=== PATIENT | female | born 1955 | race Caucasian/White ===

== ENCOUNTER 2021-02-14 13:08 | Inpatient (IN) ==
[2021-02-14] MEDS ORDERED: LACTULOSE 20 GM/30 ML ORAL.SOL PO PRN (14:27)
[2021-02-14] MEDS ORDERED: SENNOSIDES 1 TABLET PO PRN (14:27)
[2021-02-14] MEDS ORDERED: ONDANSETRON 4 MG ODT TABLET SL PRN (14:32)
[2021-02-14] MEDS ORDERED: DEXTROSE 31 GM ORAL.SUSP PO PRN (14:32)
[2021-02-14] MEDS ORDERED: DEXTROSE 50% 50 ML VIAL IV PRN (14:32)
--- NOTE | 2021-02-14 17:10 | Internal Med History&Physical ---
HPI History of Present Illness Patient information: Note initiated : 02/14/21 at 5:08 pm Service Date, if different from initiated Date: [] Patient: Etelvina Max a 65 y/o F admitted on 02/14/21 for COVID, pna. Chief Complaint: Dyspnea History of present illness: Ms. Max is a 65 year old F history of hypothyroidism, type 2 diabetes, hypertension, hyperlipidemia who presents in transfer from the [facility] emergency room with respiratory failure and pneumonia due to COVID-19. History is obtained and briefly speaking with the patient, though that was focused as she was on BiPAP and had difficulty speaking and was dyspneic. Further history is also obtained in reviewing records available at the [facility], as well as records sent from [facility] that were obtained from her PCPs office. Patient tells me that she has been short of breath for 3 to 4 weeks. She is felt achy she has felt rundown and has had a generally nonproductive cough. She states she went to her PCPs about 3 weeks ago and was diagnosed with Covid, though in reviewing records she was seen in Dr. Velez's office on 02/08. She had findings consistent with COVID-19 at that time and subsequent rapid Covid test was positive. Her vital signs at that time showed 99% room air saturation. During that visit she complained of a mostly dry cough, wheezing, decreased energy myalgias and headache. She was prescribed prednisone and doxycycline prior to the SARS-CoV-2 assay returning. Since then, particularly in the last 3 days she has had worsening dyspnea. She continues to feel feverish. She has decreased appetite and decreased energy. She still has body aches. Sense of taste and smell are abnormal but are still present. She presented to the emergency department at [facility] due to worsening symptoms and required oxygen to maintain saturations. Evaluation there with CT of the chest showed no pulmonary embolism but areas of groundglass opacity consistent with COVID-19 pneumonia. White count was normal at 6.1, mild hyponatremia to 132 creatinine normal at 0.9. VBG with pH 7.49, venous CO2 40. Lactate normal at 1.7, troponin less than 0.01 and pro calcitonin slightly abnormal at 0.35. proBNP was 1796. She was initially on oxygen by nasal cannula with progressive needs up to about 10 LPM. She was subsequently transitioned to BiPAP for increased work of breathing during transport. She is being transferred to [facility] due to lack of bed availability at [facility]. On arrival at [facility], she was on nonrebreather, placed on BiPAP and 100% FiO2 and is slowly had improving saturations and her FiO2 has been titrated down to 85% when I see her. No current headache, intermittent fevers. Still with cough that is mostly nonproductive. She does have some chest pain which seems to be more musculoskeletal associated with prolonged coughing. No pleuritic pain with respirations. No abdominal pain, intermittent nausea, she has had 1 or 2 bouts of emesis in the last few weeks. No dysuria. No lower extremity edema. Review of Systems Review of systems: The remainder of a full 11 point review of systems cannot be obtained due to dyspnea secondary to the patient's respiratory failure. PFSH PFSH All Active Problems (Updated 02/14/21 @ 17:26 by Katie Mirza MD) Acute respiratory failure with hypoxemia (Acute) Pneumonia due to COVID-19 virus (Acute) Strain of lumbar region (Acute) Strain of rectus abdominis muscle (Acute) Second degree uterine prolapse (Chronic) Numbness and tingling sensation of skin (Acute) Diabetes mellitus (Chronic) No pertinent past surgical history (Chronic) Hypothyroidism (acquired) (Chronic) Hypertension, essential (Chronic) Hyperlipidemia (Chronic) Diabetes mellitus, type II (Chronic) Back pain (Chronic) Medical History (Updated 02/14/21 @ 17:26 by Katie Mirza MD) Back pain Diabetes mellitus Diabetes mellitus, type II Hyperlipidemia Hypertension, essential Hypothyroidism (acquired) Second degree uterine prolapse Surgical History (Updated 09/02/20 @ 10:58 by [employer] [facility]) No pertinent past surgical history Family History Mother Diabetes mellitus Acute myocardial infarction Brother Acute myocardial infarction CVA (cerebral vascular accident) of CVA after knee surgery Father Acute myocardial infarction Social History (Updated 02/14/21 @ 17:26 by Katie Mirza MD) smoking status: Never smoker alcohol intake frequency: a few times a month MEDS/ALLERGIES Home Medications and Allergies Home Medications Medication Instructions Recorded Confirmed Type aspirin 81 mg PO QDAY 02/14/21 02/14/21 History benzonatate 100 mg PO TIDP PRN 02/14/21 02/14/21 History cannabidiol [Epidiolex] 1 mg PO DAILY 02/14/21 02/14/21 History cholecalciferol (vitamin D3) 1,000 unit PO DAILY 02/14/21 02/14/21 History [Vitamin D3] doxycycline hyclate 100 mg PO BID 02/14/21 02/14/21 History levothyroxine 125 mcg PO QDAY 02/14/21 02/14/21 History metformin 850 mg PO BID 02/14/21 02/14/21 History omega-3 fatty [id number]-imz 1 cap PO DAILY 02/14/21 02/14/21 History [MegaRed Nyzlg-Veqnk-2] phytosterol combination no.1 500 mg PO DAILY 02/14/21 02/14/21 History [Cholest Care] prednisone 10 mg PO QDAY 02/14/21 02/14/21 History valsartan-hydrochlorothiazide 1 tab PO QDAY 02/14/21 02/14/21 History zinc sulfate [Orazinc] 50 mg PO QDAY 02/14/21 02/14/21 History Allergies Allergy/AdvReac Type Severity Reaction Status Date / Time codeine AdvReac Mild N/V/D Verified 02/14/21 14:53 hydrocodone AdvReac Mild Vomiting Verified 02/14/21 14:53 EXAM Constitutional Vitals: Temp Pulse Resp BP Pulse Ox 98.4 F 94 H 22 161/85 96 02/14/21 16:01 02/14/21 16:06 02/14/21 16:06 02/14/21 16:01 02/14/21 16:06 GENERAL: Alert, oriented, in bed wearing BiPAP, uncomfortable appearing. HEENT: Atraumatic. Pupils are equal at 3 mm, limited oropharyngeal exam reveals normal mucosa and midline tongue. BiPAP mask is in place. NECK: Supple without meningismus. RESPIRATORY: Respirations assisted by BiPAP, crackles throughout all lung viramontes, more so in the right lung (though laying towards right side and that lung is dependent at time of my exam). No wheezing, no rhonchi. CARDIOVASCULAR: Regular rate and rhythm, no murmur. No peripheral edema. Carotid pulses 2+. GI: Abdomen soft, nontender, no guarding or rebound. Bowel sounds are present. MUSCULOSKELETAL: No joint erythema or swelling. SKIN: Intact, dry. Skin turgor normal. Extremities are cool, but perfused NEUROLOGIC: Cranial nerves II through XII grossly intact. Muscle mass normal. Strength appears symmetric, formal testing not performed. Sensation intact to light touch. PSYCHIATRIC: Alert, oriented x3, mood and affect congruent to situation, normal insight. DATA Data Completed and Pending Labs: Laboratory Results - last 24 hr 02/14/21 16:29 Sodium 133 Potassium 3.8 Chloride 95 L Carbon Dioxide 23 Anion Gap 15.0 BUN 26 H Creatinine 0.8 GFR Calculation 76 Glucose 312 H Uric Acid 3.9 Calcium 8.5 L Phosphorus 2.4 L Magnesium 2.1 Total Bilirubin 0.7 Direct Bilirubin 0.3 H GGT 21 AST 42 H ALT 24 Alkaline Phosphatase 43 Lactate Dehydrogenase 825 H Total Protein 5.9 Albumin 2.8 L Globulin 3.1 Albumin/Globulin Ratio 0.9 L Triglycerides 133 Impressions Impressions: CTA of the chest, bilateral groundglass opacities, no pulmonary embolism, per report from [facility]. EKG normal sinus rhythm rate of 87 with normal intervals and no acute injury pattern. Tracing is reviewed personally. A/P Narrative A/P Narrative: Pneumonia due to COVID-19 -Symptoms ongoing for a few weeks -Positive SARS-CoV-2 test on 02/08 -Progressive dyspnea, myalgias and malaise leading to ED presentation -Worsened more abruptly over the 3 days prior to presentation -Initially required nasal cannula, subsequently on BiPAP by the time of transfer Acute respiratory failure with hypoxia -Secondary to COVID-19 pneumonia -BMP elevated at 1796, but clinically no evidence of volume overload, suspect secondary to acute long process -Pulmonary embolism ruled out -Normal white count, argues against bacterial infection, though procalcitonin mildly abnormal at 0.35 Hypertension Type 2 diabetes Hyperlipidemia Hypothyroidism Plan: Inpatient admission BiPAP support High flow nasal cannula trial for meals/break from BiPAP Continue dexamethasone daily (first dose given at [facility]) Begin remdesivir Monitor intake/output, try to maintain a mild net diuresis Hold Metformin Diabetic diet, sliding scale insulin Follow procalcitonin, if rising consider adding antibacterials Follow electrolytes and renal function Follow CRP Prophylaxis: Twice daily 40 mg enoxaparin given severity of Covid illness CODE STATUS: Full code, would wish to be have intubation and ventilation if needed Time Spent With Patient Time: Critical care time: 45 minutes in evaluating and managing this patient with respiratory failure, BiPAP dependence from COVID-19 pneumonia
[2021-02-14] MEDS: INSULIN LISPRO 1 UNIT/0.01 ML UNIT SQ SCH ×2 (17:43→20:53)
[2021-02-14] MEDS ORDERED: REMDESIVIR 200 MG in 0.9 % SODIUM CHLORIDE 250 ML IV ONE (18:00)
[2021-02-14 18:17] LABS: ALT/SGPT 24 U/L (<40); AST/SGOT 42 U/L (<32); Albumin 2.8 gm/dL (3.2-5.2); Albumin/Globulin Ratio 0.9 (1.0-2.3); Alkaline Phosphatase 43 U/L (39-117); Bilirubin,Direct 0.3 mg/dL (<0.3); Bilirubin,Total 0.7 mg/dL (0.1-1.0); Blood Urea Nitrogen 26 mg/dL (8-23); Calcium 8.5 mg/dL (8.6-10.4); Carbon Dioxide 23 mmol/L (22-30); Chloride 95 mmol/L (96-108); Globulin 3.1 gm/dL (2.2-3.7); Glomerular Filtration Rate 76; Glucose 312 mg/dL (70-105); Lactate Dehydrogenase 825 U/L (135-225); Phosphorous 2.4 mg/dL (2.5-4.5); Triglycerides 133 mg/dL (<150); Uric Acid 3.9 mg/dL (2.5-8.0)
[2021-02-14] MEDS: ENOXAPARIN 40 MG/0.4 ML SYRINGE SQ SCH (20:52)
[2021-02-14] MEDS: 0.9 % SODIUM CHLORIDE 10 ML SYRINGE IV SCH (20:53)
[2021-02-14] MEDS: DOCUSATE SODIUM 100 MG CAPSULE PO SCH (20:53)
[2021-02-15] MEDS ORDERED: morphine 2 MG/ML VIAL IV ONE (05:00)
[2021-02-15] MEDS ORDERED: FUROSEMIDE 40 MG/4 ML VIAL IV ONE ×2 (05:03)
[2021-02-15] MEDS ORDERED: morphine 2 MG/ML VIAL ONE (05:03)
[2021-02-15] MEDS: 0.9 % SODIUM CHLORIDE 10 ML SYRINGE IV SCH ×3 (05:25→20:13)
[2021-02-15] MEDS: ONDANSETRON 4 MG/2 ML VIAL IV PRN ×2 (05:25→17:23)
[2021-02-15 06:57] LABS: Basophils # (Auto) 0.01 K/mcL (0.00-0.20); Basophils % (Auto) 0.2 % (0.0-2.0); Eosinophils # (Auto) 0 K/mcL (0.00-0.70); Eosinophils % (Auto) 0 % (0.0-7.0); Hematocrit 44.9 % (36.0-48.0); Hemoglobin 15.4 g/dL (12.0-15.0); Lymphocytes # (Auto) 0.65 K/mcL (1.50-4.80); Lymphocytes % (Auto) 10.2 % (15.0-49.0); Mean Cell Volume 88.4 fL (80.0-100.0); Mean Corpuscular HGB Conc 34.3 g/dL (31.0-36.0); Mean Platelet Volume 10.7 fL (7.4-10.4); Monocytes # (Auto) 0.24 K/mcL (0.10-0.90); Monocytes % (Auto) 3.8 % (1.0-12.0); Neutrophils % (Auto) 85.8 % (38.0-78.0); Platelet Count 149 K/mcL (140-440); RBC 5.08 M/mcL (4.00-5.20); Red Cell Distribution Width 12.1 % (11.5-14.5); WBC 6.4 K/mcL (4.5-11.0)
[2021-02-15 07:01] LABS: Estimated Average Glucose(eAG) 180 mg/dL; Hemoglobin A1C 7.9 % Hgb (4.0-6.0)
[2021-02-15 07:12] LABS: ALT/SGPT 24 U/L (<40); AST/SGOT 43 U/L (<32); Albumin 2.7 gm/dL (3.2-5.2); Albumin/Globulin Ratio 0.9 (1.0-2.3); Alkaline Phosphatase 46 U/L (39-117); Bilirubin,Direct 0.2 mg/dL (<0.3); Bilirubin,Total 0.6 mg/dL (0.1-1.0); Blood Urea Nitrogen 25 mg/dL (8-23); Calcium 8.8 mg/dL (8.6-10.4); Carbon Dioxide 24 mmol/L (22-30); Chloride 99 mmol/L (96-108); Glomerular Filtration Rate 76; Glucose 264 mg/dL (70-105); Lactate Dehydrogenase 863 U/L (135-225); Phosphorous 2.5 mg/dL (2.5-4.5); Triglycerides 121 mg/dL (<150); Uric Acid 4.3 mg/dL (2.5-8.0)
--- NOTE | 2021-02-15 08:26 | XRay Report ---
INDICATION: f/u Covid PNA TECHNIQUE: AP portable semiupright chest x-ray COMPARISON: None FINDINGS:Indication describes follow-up covid pneumonia. No prior examinations are available for comparison Lungs:There are bilateral patchy interstitial infiltrates. Findings are consistent with covid pneumonia. No dense parenchymal consolidation. No pulmonary parenchymal mass. Heart, vascular:No significant cardiomegaly. Pulmonary vascularity is normal. No pulmonary edema or pulmonary congestion Mediastinum, peggy:No mediastinal widening. No hilar mass Pleura:No pleural fluid. No pleural-based mass or calcification Skeletal:Negative. IMPRESSION: Bilateral pulmonary parenchymal infiltrates consistent with covid pneumonia Interpreted and Authenticated by: Ralph Arboleda 02/15/21
[2021-02-15] MEDS: FUROSEMIDE 20 MG/2 ML VIAL IV SCH (08:41)
[2021-02-15] MEDS: ENOXAPARIN 40 MG/0.4 ML SYRINGE SQ SCH ×2 (10:11→20:13)
[2021-02-15] MEDS: DOCUSATE SODIUM 100 MG CAPSULE PO SCH ×2 (10:12→20:08)
[2021-02-15] MEDS: PANTOPRAZOLE 40 MG TABLET PO SCH (10:12)
[2021-02-15] MEDS: INSULIN LISPRO 1 UNIT/0.01 ML UNIT SQ SCH ×4 (10:22→20:24)
[2021-02-15] MEDS ORDERED: LACTOPEROXI/GLUC OXID/POT THIO 1 EACH GEL..EA. TOPICAL PRN (11:27)
--- NOTE | 2021-02-15 11:28 | Internal Med Progress Note ---
SUBJECTIVE Subjective Patient information: Note initiated : 02/15/21 at 11:26 am Service Date, if different from initiated Date: [] Patient: Etelvina Max a 65 y/o F admitted on 02/14/21 for COVID, pna. Chief Complaint: f/u COVID-19 pneumonia, respiratory failure Interval history: Ms. Max is a 65 year old F history of hypothyroidism, t ype 2 diabetes, hypertension, hyperlipidemia who presents in transfer from the [facility] emergency room with respiratory failure and pneumonia due to COVID- 19. History is obtained and briefly speaking with the patient, though that was focused as she was on BiPAP and had difficulty speaking and was dyspneic. Further history is also obtained in reviewing records available at the [facility], as well as records sent from [facility] that were obtained from her PCPs office. Patient tells me that she has been short of breath for 3 to 4 weeks. She is felt achy she has felt rundown and has had a generally nonproductive cough. She states she went to her PCPs about 3 weeks ago and was diagnosed with Covid, though in reviewing records she was seen in Dr. Velez's office on 02/08. She had findings consistent with COVID-19 at that time and subsequent rapid Covid test was positive. Her vital signs at that time showed 99% room air saturation. During that visit she complained of a mostly dry cough, wheezing, decreased energy myalgias and headache. She was prescribed prednisone and doxycycline prior to the SARS-CoV-2 assay returning. Since then, particularly in the last 3 days she has had worsening dyspnea. She continues to feel feverish. She has decreased appetite and decreased energy. She still has body aches. Sense of taste and smell are abnormal but are still present. She presented to the emergency department at [facility] due to worsening symptoms and required oxygen to maintain saturations. Evaluation there with CT of the chest showed no pulmonary embolism but areas of groundglass opacity consistent with COVID-19 pneumonia. White count was normal at 6.1, mild hyponatremia to 132 creatinine normal at 0.9. VBG with pH 7.49, venous CO2 40. Lactate normal at 1.7, troponin less than 0.01 and pro calcitonin slightly abnormal at 0.35. proBNP was 1796. She was initially on oxygen by nasal cannula with progressive needs up to about 10 LPM. She was subsequently transitioned to BiPAP for increased work of breathing during transport. She is being [facility] due to lack of bed availability at [facility]. 8/3patient requiring BiPAP most of the day yesterday. Overnight at about 5:00 this morning was complaining of feeling very short of breath, was awake and alert. Up to 100% FiO2 at that time. 0.5 mg of morphine did not help with air hunger. Also received 40 mg of IV Lasix with diuresis. This morning, BiPAP pressures increased, with increasing saturations, but still on maximal FiO2. She is awake, alert and aware of her condition. Still would wish to have intubation if required. Willing to try proning. Pertinent ROS: Verify she does have dyspnea, lower chest pain along rib margin associated with coughing, cough has improved, complaining of dry mouth. Constitutional Vitals: Vital Signs Temp Pulse Resp BP Pulse Ox 99.8 F H 88 36 H 157/97 99 02/15/21 08:11 02/15/21 10:19 02/15/21 10:19 02/15/21 08:00 02/15/21 10:19 Period Temp Pulse Resp BP Sys/Hemphill Pulse Ox Last 24 Hr 98.3 F-99.9 F 75-100 19-36 129-166/70-97 86-99 Intake and Output 02/14/21 02/15/21 02/15/21 21:59 05:59 13:59 Intake Total 0 490 0 Output Total 475 550 Balance -475 -60 0 Weight 142 lb 3.2 oz GENERAL: Awake, alert, BiPAP mask RESPIRATORY: Respirations labored and with BiPAP assistance. Faint bilateral crackles. CARDIOVASCULAR: Regular rate and rhythm ABDOMEN: Soft, nontender EXTREMITIES: No edema NEURO: Alert, oriented x3, generalized weakness Intake & Output: Intake & Output 02/14/21 02/15/21 02/15/21 21:59 05:59 13:59 Intake Total 0 490 0 Output Total 475 550 Balance -475 -60 0 Weight 142 lb 3.2 oz Intake: IV 250 Veklury 200 mg In Sodium 250 Chloride 0.9% 250 ml @ 500 mls/ hr IV ONCE ONE Rx#:[id number] Oral 0 240 0 Output: Urine Catheter Amount 475 550 Other: Meal Dinner Percent of Meal Consumed 25% Feeding Ability Assist with Tray Set Up Urine Appearance Clear Urine Color Bright Yellow OBJ DATA Labs CBC & Chem 7: 02/15/21 05:15 02/15/21 05:15 Labs: Abnormal Lab Results 02/15/21 02/15/21 02/15/21 05:15 05:15 05:15 Hgb 15.4 H MPV 10.7 H Neut % (Auto) 85.8 H Lymph % (Auto) 10.2 L Lymph # (Auto) 0.65 L Chloride BUN 25 H Glucose 264 H Hemoglobin A1c 7.9 H Calcium Phosphorus Direct Bilirubin AST 43 H Lactate Dehydrogenase 863 H C-Reactive Protein 9.20 H Total Protein 5.7 L Albumin 2.7 L Albumin/Globulin Ratio 0.9 L Procalcitonin 0.26 H 02/14/21 16:29 Hgb MPV Neut % (Auto) Lymph % (Auto) Lymph # (Auto) Chloride 95 L BUN 26 H Glucose 312 H Hemoglobin A1c Calcium 8.5 L Phosphorus 2.4 L Direct Bilirubin 0.3 H AST 42 H Lactate Dehydrogenase 825 H C-Reactive Protein Total Protein Albumin 2.8 L Albumin/Globulin Ratio 0.9 L Procalcitonin Meds: Medications Acetaminophen (Acetaminophen 325 Mg Tablet) 650 mg PO Q6HP PRN; Protocol PRN Reason: Per Pain Protocol/Fever > 101 Dextrose (Dextrose 50% 50 Ml Vial) 0 ml IV UD PRN PRN Reason: Hypoglycemia Diagnostic Test (Pha) (Accu-Chek 1 Each Strip) 1 each FS ACHS COUNTS INCLUDE 234 BEDS AT THE [facility] Last Admin: 02/15/21 10:20 Dose: 1 each Documented by: Docusate Sodium (Docusate Sodium 100 Mg Capsule) 100 mg PO BID COUNTS INCLUDE 234 BEDS AT THE [facility] Last Admin: 02/15/21 10:12 Dose: 100 mg Documented by: Enoxaparin Sodium (Enoxaparin 40 Mg/0.4 Ml Syringe) 40 mg SQ BID COUNTS INCLUDE 234 BEDS AT THE [facility] Last Admin: 02/15/21 10:11 Dose: 40 mg Documented by: Furosemide (Furosemide 20 Mg/2 Ml Vial) 20 mg IV DAILY COUNTS INCLUDE 234 BEDS AT THE [facility] Last Admin: 02/15/21 08:41 Dose: Not Given Documented by: Glucose (Dextrose 31 Gm Oral.Susp) 15 gm PO PRN PRN PRN Reason: Hypoglycemia REMDESIVIR 100 mg/ Sodium (Chloride) 250 mls @ 500 mls/hr IV Q24H COUNTS INCLUDE 234 BEDS AT THE [facility] Stop: 02/18/21 12:29 Insulin Human Lispro (Insulin Lispro 1 Unit/0.01 Ml Unit) 0 unit SQ ACHS COUNTS INCLUDE 234 BEDS AT THE [facility]; Protocol Last Admin: 02/15/21 10:22 Dose: 12 unit Documented by: Lactulose (Lactulose 20 Gm/30 Ml Oral.Jeannie) 10 gm PO DAILYP PRN PRN Reason: Constipation Ondansetron HCl (Ondansetron 4 Mg Odt Tablet) 4 mg SL Q4HP PRN; Protocol PRN Reason: Nausea And Vomiting Ondansetron HCl (Ondansetron 4 Mg/2 Ml Vial) 4 mg IV Q4HP PRN; Protocol PRN Reason: Nausea And Vomiting Last Admin: 02/15/21 05:25 Dose: 4 mg Documented by: Pantoprazole Sodium (Pantoprazole 40 Mg Tablet) 40 mg PO QAMAC COUNTS INCLUDE 234 BEDS AT THE [facility] Last Admin: 02/15/21 10:12 Dose: 40 mg Documented by: Senna (Sennosides 1 Tablet) 2 tab PO HSP PRN PRN Reason: Constipation Sodium Chloride (0.9 % Sodium Chloride 10 Ml Syringe) 10 ml IV Q8 COUNTS INCLUDE 234 BEDS AT THE [facility] Last Admin: 02/15/21 05:25 Dose: 10 ml Documented by: A/P Narrative A/P Narrative: Pneumonia due to COVID-19 -Symptoms ongoing for a few weeks -Positive SARS-CoV-2 test on 02/08 -Progressive dyspnea, myalgias and malaise leading to ED presentation -Worsened more abruptly over the 3 days prior to presentation -Initially required nasal cannula, subsequently on BiPAP by the time of transfer -Up to 100% FiO2 on 02/15, though starting to improve with increased pressures and will try proning Acute respiratory failure with hypoxia -Secondary to COVID-19 pneumonia -BMP elevated at 1796, but clinically no evidence of volume overload, suspect secondary to acute long process -Pulmonary embolism ruled out -Normal white count, argues against bacterial infection, though procalcitonin mildly abnormal at 0.35 -Procalcitonin decreased to 0.26, argues against bacterial infection this morning Type 2 diabetes -On Metformin at home Hypertension Hyperlipidemia Hypothyroidism Plan: BiPAP support Trial of proning today High flow nasal cannula trial for meals/break from BiPAP if stable Continue dexamethasone and remdesivir, day #2 Monitor intake/output, try to maintain a mild net diuresis Biotene for dry mouth Hold Metformin Diabetic diet, sliding scale insulin Follow procalcitonin, if rising consider adding antibacterials Follow electrolytes and renal function Follow CRP Prophylaxis: Twice daily 40 mg enoxaparin given severity of Covid illness CODE STATUS: Full code, would wish to be have intubation and ventilation if needed Time Spent With Patient Time: Critical care: 30 minutes critical care time with the patient on unit and managing respiratory failure and noninvasive ventilation QUALITY VTE Deep Vein Thrombosis/Pulmonary Embolism Present on Admission: No
[2021-02-15] MEDS: REMDESIVIR 100 MG in 0.9 % SODIUM CHLORIDE 250 ML IV SCH (12:00)
--- NOTE | 2021-02-15 14:13 | Internal Med Progress Note ---
SUBJECTIVE Subjective Patient information: Note initiated : 02/15/21 at 2:09 pm Service Date, if different from initiated Date: [] Patient: Etelvina Max a 65 y/o F admitted on 02/14/21 for COVID, pna. Chief Complaint: [] Interval history: Ms. Max is a 65 year old F history of hypothyroidism, type 2 diabetes, hypertension, hyperlipidemia who presents in transfer from the [facility] emergency room with respiratory failure and pneumonia due to COVID- 19. History is obtained and briefly speaking with the patient, though that was focused as she was on BiPAP and had difficulty speaking and was dyspneic. Further history is also obtained in reviewing records available at the [facility], as well as records sent from [facility] that were obtained from her PCPs office. Patient tells me that she has been short of breath for 3 to 4 weeks. She is felt achy she has felt rundown and has had a generally nonproductive cough. She states she went to her PCPs about 3 weeks ago and was diagnosed with Covid, though in reviewing records she was seen in Dr. Velez's office on 02/08. She had findings consistent with COVID-19 at that time and subsequent rapid Covid test was positive. Her vital signs at that time showed 99% room air saturation. During that visit she complained of a mostly dry cough, wheezing, decreased energy myalgias and headache. She was prescribed prednisone and doxycycline prior to the SARS-CoV-2 assay returning. Since then, particularly in the last 3 days she has had worsening dyspnea. She continues to feel feverish. She has decreased appetite and decreased energy. She still has body aches. Sense of taste and smell are abnormal but are still present. She presented to the emergency department at [facility] due to worsening symptoms and required oxygen to maintain saturations. Evaluation there with CT of the chest showed no pulmonary embolism but areas of groundglass opacity consistent with COVID-19 pneumonia. White count was normal at 6.1, mild hyponatremia to 132 creatinine normal at 0.9. VBG with pH 7.49, venous CO2 40. Lactate normal at 1.7, troponin less than 0.01 and pro calcitonin slightly abnormal at 0.35. proBNP was 1796. She was initially on oxygen by nasal cannu la with progressive needs up to about 10 LPM. She was subsequently transitioned to BiPAP for increased work of breathing during transport. She is being [facility] due to lack of bed availability at [facility]. atient requiring BiPAP most of the day yesterday. Overnight at about 5:00 this morning was complaining of feeling very short of breath, was awake and alert. Up to 100% FiO2 at that time. 0.5 mg of morphine did not help with air hunger. Also received 40 mg of IV Lasix with diuresis. This morning, BiPAP pressures increased, with increasing saturations, but still on maximal FiO2. She is awake, alert and aware of her condition. Still would wish to have intuba tion if required. Willing to try proning. 02/16 Constitutional Vitals: Vital Signs Temp Pulse Resp BP Pulse Ox 99.4 F H 88 22 130/72 99 02/15/21 12:01 02/15/21 12:19 02/15/21 12:19 02/15/21 12:01 02/15/21 12:19 Period Temp Pulse Resp BP Sys/Hemphill Pulse Ox Last 24 Hr 98.3 F-100.0 F 75-100 19-36 129-166/70-97 86-99 Intake and Output 02/15/21 02/15/21 02/15/21 05:59 13:59 21:59 Intake Total 490 250 Output Total 550 Balance -60 250 Weight 64.501 kg Patient Weight 02/16/21 05:59 Weight 64.501 kg Intake & Output: Intake & Output 02/15/21 02/15/21 02/15/21 05:59 13:59 21:59 Intake Total 490 250 Output Total 550 Balance -60 250 Weight 64.501 kg Intake: IV 250 250 Veklury 100 mg In Sodium 250 250 Chloride 0.9% 250 ml @ 500 mls/ hr IV Q24H [facility] Rx#:[id number] Oral 240 0 Output: Urine Catheter Amount 550 Other: Meal Dinner Percent of Meal Consumed 25% Feeding Ability Assist with Tray Set Up Exam: General: Alert, Awake, No acute Distress Eyes/N/T: EOMI, Head/Neck: neck supple, CV: RRR, No murmurs, Pulm: faint b/l rales, labored, on bipap, no wheezing Abd: soft, nontender, +BS x4 Ext: no clubbing/cyanosis/edema Neuro: Alert, no focal deficits, moves all extremities, Skin: warm/dry OBJ DATA Labs CBC & Chem 7: 02/15/21 05:15 02/15/21 05:15 Labs: Abnormal Lab Results 02/15/21 02/15/21 02/15/21 05:15 05:15 05:15 Hgb 15.4 H MPV 10.7 H Neut % (Auto) 85.8 H Lymph % (Auto) 10.2 L Lymph # (Auto) 0.65 L Chloride BUN 25 H Glucose 264 H Hemoglobin A1c 7.9 H Calcium Phosphorus Direct Bilirubin AST 43 H Lactate Dehydrogenase 863 H C-Reactive Protein 9.20 H Total Protein 5.7 L Albumin 2.7 L Albumin/Globulin Ratio 0.9 L Procalcitonin 0.26 H 02/14/21 16:29 Hgb MPV Neut % (Auto) Lymph % (Auto) Lymph # (Auto) Chloride 95 L BUN 26 H Glucose 312 H Hemoglobin A1c Calcium 8.5 L Phosphorus 2.4 L Direct Bilirubin 0.3 H AST 42 H Lactate Dehydrogenase 825 H C-Reactive Protein Total Protein Albumin 2.8 L Albumin/Globulin Ratio 0.9 L Procalcitonin Meds: Medications Acetaminophen (Acetaminophen 325 Mg Tablet) 650 mg PO Q6HP PRN; Protocol PRN Reason: Per Pain Protocol/Fever > 101 Dextrose (Dextrose 50% 50 Ml Vial) 0 ml IV UD PRN PRN Reason: Hypoglycemia Diagnostic Test (Pha) (Accu-Chek 1 Each Strip) 1 each FS ACHS [facility] Last Admin: 02/15/21 12:53 Dose: 1 each Documented by: Docusate Sodium (Docusate Sodium 100 Mg Capsule) 100 mg PO BID [facility] Last Admin: 02/15/21 10:12 Dose: 100 mg Documented by: Enoxaparin Sodium (Enoxaparin 40 Mg/0.4 Ml Syringe) 40 mg SQ BID [facility] Last Admin: 02/15/21 10:11 Dose: 40 mg Documented by: Furosemide (Furosemide 20 Mg/2 Ml Vial) 20 mg IV DAILY [facility] Last Admin: 02/15/21 08:41 Dose: Not Given Documented by: Glucose (Dextrose 31 Gm Oral.Susp) 15 gm PO PRN PRN PRN Reason: Hypoglycemia Glucose Oxid/Lactoperoxid/Muramidas (Lactoperoxi/Gluc Oxid/Pot Thio 1 Each Gel..Ea.) 1 each TOPICAL PRN PRN PRN Reason: Dry Mouth REMDESIVIR 100 mg/ Sodium (Chloride) 250 mls @ 500 mls/hr IV Q24H [facility] Stop: 02/18/21 12:29 Last Infusion: 02/15/21 12:40 Dose: Infused Documented by: Insulin Human Lispro (Insulin Lispro 1 Unit/0.01 Ml Unit) 0 unit SQ ACHS [facility]; Protocol Last Admin: 02/15/21 12:54 Dose: 10 unit Documented by: Lactulose (Lactulose 20 Gm/30 Ml Oral.Jeannie) 10 gm PO DAILYP PRN PRN Reason: Constipation Ondansetron HCl (Ondansetron 4 Mg Odt Tablet) 4 mg SL Q4HP PRN; Protocol PRN Reason: Nausea And Vomiting Ondansetron HCl (Ondansetron 4 Mg/2 Ml Vial) 4 mg IV Q4HP PRN; Protocol PRN Reason: Nausea And Vomiting Last Admin: 02/15/21 05:25 Dose: 4 mg Documented by: Pantoprazole Sodium (Pantoprazole 40 Mg Tablet) 40 mg PO QAMAC [facility] Last Admin: 02/15/21 10:12 Dose: 40 mg Documented by: Senna (Sennosides 1 Tablet) 2 tab PO HSP PRN PRN Reason: Constipation Sodium Chloride (0.9 % Sodium Chloride 10 Ml Syringe) 10 ml IV Q8 [facility] Last Admin: 02/15/21 12:37 Dose: 10 ml Documented by: A/P Narrative A/P Narrative: A: *Pneumonia due to COVID-19 w/possible Bacterial coinfection: -Positive SARS-CoV-2 test on 02/08 -PCT mildly elevated *Acute respiratory failure w/hypoxia: 2/2 above -BMP elevated at 1796, but clinically no evidence of volume overload, suspect 2/2 acute long process -Pulmonary embolism ruled out -on Bipap @100% fio2 *Type 2 diabetes: On Metformin at home -A1c 7.9 *Hypertension/HLD: *Hypothyroidism: Plan: -Tocilizumab BiPAP support, wean as able Trial of proning today High flow nasal cannula trial for meals/break from BiPAP if stable Continue dexamethasone and remdesivir, day #2 Monitor intake/output, try to maintain a mild net diuresis Biotene for dry mouth Diabetic diet, sliding scale insulin, hold metformin Follow electrolytes and renal function Follow CRP Prophylaxis: Twice daily 40 mg enoxaparin given severity of Covid illness / ppi CODE STATUS: Full code, would wish to be have intubation and ventilation if needed Time Spent With Patient Time: Total time spent is greater than 50% in coordination of care (as documented) at patient's floor/unit and/or counseling patient: QUALITY VTE Deep Vein Thrombosis/Pulmonary Embolism Present on Admission: No
[2021-02-15] MEDS: AZITHROMYCIN 500 MG in DEXTROSE 5% IN WATER 250 ML IV SCH (14:20)
[2021-02-15] MEDS ORDERED: INSULIN LISPRO 1 UNIT/0.01 ML UNIT SQ SCH (14:30)
[2021-02-15] MEDS: cefTRIAXone 2 GM in DEXTROSE 5% IN WATER 50 ML IV SCH (14:56)
[2021-02-15] MEDS: INSULIN GLARGINE, HUMAN 1 UNIT/0.01 ML SQ SCH (15:08)
[2021-02-15] MEDS: DEXAMETHASONE 10 MG/ML VIAL IV SCH (15:08)
[2021-02-15] MEDS: ACETAMINOPHEN 325 MG TABLET PO PRN (17:10)
[2021-02-16] MEDS: INSULIN LISPRO 1 UNIT/0.01 ML UNIT SQ SCH ×6 (02:08→20:38)
[2021-02-16] MEDS: 0.9 % SODIUM CHLORIDE 10 ML SYRINGE IV SCH ×3 (05:51→20:05)
[2021-02-16 07:26] LABS: Hematocrit 46.1 % (36.0-48.0); Hemoglobin 16.3 g/dL (12.0-15.0); Mean Cell Volume 88.8 fL (80.0-100.0); Mean Corpuscular HGB Conc 35.4 g/dL (31.0-36.0); Platelet Count 181 K/mcL (140-440); RBC 5.19 M/mcL (4.00-5.20); Red Cell Distribution Width 12.3 % (11.5-14.5); WBC 6.9 K/mcL (4.5-11.0)
[2021-02-16 07:51] LABS: ALT/SGPT 21 U/L (<40); AST/SGOT 37 U/L (<32); Albumin 2.9 gm/dL (3.2-5.2); Albumin/Globulin Ratio 0.9 (1.0-2.3); Alkaline Phosphatase 48 U/L (39-117); Bilirubin,Direct 0.3 mg/dL (<0.3); Bilirubin,Total 0.6 mg/dL (0.1-1.0); Blood Urea Nitrogen 36 mg/dL (8-23); Carbon Dioxide 29 mmol/L (22-30); Chloride 97 mmol/L (96-108); Globulin 3.2 gm/dL (2.2-3.7); Glomerular Filtration Rate 52; Glucose 252 mg/dL (70-105); Lactate Dehydrogenase 804 U/L (135-225); Phosphorous 3.2 mg/dL (2.5-4.5); Triglycerides 73 mg/dL (<150); Uric Acid 5.5 mg/dL (2.5-8.0)
--- NOTE | 2021-02-16 07:52 | Internal Med Progress Note ---
SUBJECTIVE Subjective Patient information: Note initiated : 02/16/21 at 7:48 am Service Date, if different from initiated Date: [] Patient: Etelvina Max a 65 y/o F admitted on 02/14/21 for COVID, pna. Chief Complaint: [] Interval history: Ms. Max is a 65 year old F history of hypothyroidism, type 2 diabetes, hypertension, hyperlipidemia who presents in transfer from the [facility] emergency room with respiratory failure and pneumonia due to COVID- 19. History is obtained and briefly speaking with the patient, though that was focused as she was on BiPAP and had difficulty speaking and was dyspneic. Further history is also obtained in reviewing records available at the [facility], as well as records sent from [facility] that were obtained from her PCPs office. Patient tells me that she has been short of breath for 3 to 4 weeks. She is felt achy she has felt rundown and has had a generally nonproductive cough. She states she went to her PCPs about 3 weeks ago and was diagnosed with Covid, though in reviewing records she was seen in Dr. Velez's office on 02/08. She had findings consistent with COVID-19 at that time and subsequent rapid Covid test was positive. Her vital signs at that time showed 99% room air saturation. During that visit she complained of a mostly dry cough, wheezing, decreased energy myalgias and headache. She was prescribed prednisone and doxycycline prior to the SARS-CoV-2 assay returning. Since then, particularly in the last 3 days she has had worsening dyspnea. She continues to feel feverish. She has decreased appetite and decreased energy. She still has body aches. Sense of taste and smell are abnormal but are still present. She presented to the emergency department at [facility] due to worsening symptoms and required oxygen to maintain saturations. Evaluation there with CT of the chest showed no pulmonary embolism but areas of groundglass opacity consistent with COVID-19 pneumonia. White count was normal at 6.1, mild hyponatremia to 132 creatinine normal at 0.9. VBG with pH 7.49, venous CO2 40. Lactate normal at 1.7, troponin less than 0.01 and pro calcitonin slightly abnormal at 0.35. proBNP was 1796. She was initially on oxygen by nasal cannu la with progressive needs up to about 10 LPM. She was subsequently transitioned to BiPAP for increased work of breathing during transport. She is being transferred to [facility] due to lack of bed availability at [facility]. atient requiring BiPAP most of the day yesterday. Overnight at about 5:00 this morning was complaining of feeling very short of breath, was awake and alert. Up to 100% FiO2 at that time. 0.5 mg of morphine did not help with air hunger. Also received 40 mg of IV Lasix with diuresis. This morning, BiPAP pressures increased, with increasing saturations, but still on maximal FiO2. She is awake, alert and aware of her condition. Still would wish to have intuba tion if required. Willing to try proning. 02/16 FiO2 needs decreased today. She was on 100% FiO2 yesterday. She is on 65% on BiPAP. She was on 70% FiO2 on the Vapotherm but she did not tolerate it because of the heated oxygen. Trying to get Actemra today. She states poor sleep. Review of Systems: denies headache/fever/chills/nausea/vomiting/chest or abdominal pain/diarrhea. Otherwise see above. Constitutional Vitals: Vital Signs Temp Pulse Resp BP Pulse Ox 98.8 F 94 H 23 H 140/105 90 02/16/21 05:02 02/16/21 07:21 02/16/21 07:21 02/16/21 05:01 02/16/21 07:21 Period Temp Pulse Resp BP Sys/Hemphill Pulse Ox Last 24 Hr 98.4 F-100.4 F 70-100 18-36 86-157/55-105 90-99 Intake and Output 02/15/21 02/16/21 02/16/21 21:59 05:59 13:59 Intake Total 300 0 Output Total 1450 530 Balance -1150 -530 0 Weight 66.315 kg Intake & Output: Intake & Output 02/15/21 02/16/21 02/16/21 21:59 05:59 13:59 Intake Total 300 0 Output Total 1450 530 Balance -1150 -530 0 Weight 66.315 kg Intake: IV 300 Zithromax 500 mg In Dextrose 5% 250 in Water 250 ml @ 250 mls/hr IV DAILY [facility] Rx#:[id number] Rocephin 2 gm In Dextrose 5% in 50 Water 50 ml @ 100 mls/hr IV DAILY [facility] Rx#:[id number] Oral 0 0 Output: Urine Catheter Amount 1450 530 Other: Urine Appearance Clear Urine Color Pale Exam: General: Alert, Awake, No acute Distress Eyes/N/T: EOMI, Head/Neck: neck supple, CV: RRR, No murmurs, Pulm: faint b/l rales, diminished b/l, no wheezing Abd: soft, nontender, +BS x4 Ext: no clubbing/cyanosis/edema Neuro: Alert, no focal deficits, moves all extremities, Skin: warm/dry OBJ DATA Labs CBC & Chem 7: 02/16/21 05:49 02/16/21 05:49 Labs: Abnormal Lab Results 02/16/21 02/15/21 02/15/21 05:49 05:15 05:15 Hgb 16.3 H MPV Neut % (Auto) Lymph % (Auto) Lymph # (Auto) Chloride BUN 25 H Glucose 264 H Hemoglobin A1c 7.9 H Calcium Phosphorus Direct Bilirubin AST 43 H Lactate Dehydrogenase 863 H C-Reactive Protein 9.20 H Total Protein 5.7 L Albumin 2.7 L Albumin/Globulin Ratio 0.9 L Procalcitonin 0.26 H 02/15/21 02/14/21 05:15 16:29 Hgb 15.4 H MPV 10.7 H Neut % (Auto) 85.8 H Lymph % (Auto) 10.2 L Lymph # (Auto) 0.65 L Chloride 95 L BUN 26 H Glucose 312 H Hemoglobin A1c Calcium 8.5 L Phosphorus 2.4 L Direct Bilirubin 0.3 H AST 42 H Lactate Dehydrogenase 825 H C-Reactive Protein Total Protein Albumin 2.8 L Albumin/Globulin Ratio 0.9 L Procalcitonin Meds: Medications Acetaminophen (Acetaminophen 325 Mg Tablet) 650 mg PO Q6HP PRN; Protocol PRN Reason: Per Pain Protocol/Fever > 101 Last Admin: 02/15/21 17:10 Dose: 650 mg Documented by: Dexamethasone (Dexamethasone 10 Mg/Ml Vial) 6 mg IV DAILY [facility] Last Admin: 02/15/21 15:08 Dose: 6 mg Documented by: Dextrose (Dextrose 50% 50 Ml Vial) 0 ml IV UD PRN PRN Reason: Hypoglycemia Diagnostic Test (Pha) (Accu-Chek 1 Each Strip) 1 each FS Q4 [facility] Last Admin: 02/16/21 03:31 Dose: 1 each Documented by: Docusate Sodium (Docusate Sodium 100 Mg Capsule) 100 mg PO BID [facility] Last Admin: 02/15/21 20:08 Dose: Not Given Documented by: Enoxaparin Sodium (Enoxaparin 40 Mg/0.4 Ml Syringe) 40 mg SQ BID [facility] Last Admin: 02/15/21 20:13 Dose: 40 mg Documented by: Furosemide (Furosemide 20 Mg/2 Ml Vial) 20 mg IV DAILY [facility] Last Admin: 02/15/21 08:41 Dose: Not Given Documented by: Glucose (Dextrose 31 Gm Oral.Susp) 15 gm PO PRN PRN PRN Reason: Hypoglycemia Glucose Oxid/Lactoperoxid/Muramidas (Lactoperoxi/Gluc Oxid/Pot Thio 1 Each Gel..Ea.) 1 each TOPICAL PRN PRN PRN Reason: Dry Mouth REMDESIVIR 100 mg/ Sodium (Chloride) 250 mls @ 500 mls/hr IV Q24H [facility] Stop: 02/18/21 12:29 Last Infusion: 02/15/21 12:40 Dose: Infused Documented by: Ceftriaxone Sodium 2 gm/ (Dextrose) 50 mls @ 100 mls/hr IV DAILY [facility]; Protocol Last Infusion: 02/15/21 15:30 Dose: Infused Documented by: Azithromycin 500 mg/ Dextrose 250 mls @ 250 mls/hr IV DAILY [facility]; Protocol Stop: 02/17/21 09:59 Last Infusion: 02/15/21 15:30 Dose: Infused Documented by: Insulin Glargine (Insulin Glargine, Human 1 Unit/0.01 Ml) 10 unit SQ DAILY [facility] Last Admin: 02/15/21 15:08 Dose: 10 unit Documented by: Insulin Human Lispro (Insulin Lispro 1 Unit/0.01 Ml Unit) 0 unit SQ Q4H [facility]; Protocol Last Admin: 02/16/21 03:30 Dose: 4 unit Documented by: Lactulose (Lactulose 20 Gm/30 Ml Oral.Jeannie) 10 gm PO DAILYP PRN PRN Reason: Constipation Ondansetron HCl (Ondansetron 4 Mg Odt Tablet) 4 mg SL Q4HP PRN; Protocol PRN Reason: Nausea And Vomiting Ondansetron HCl (Ondansetron 4 Mg/2 Ml Vial) 4 mg IV Q4HP PRN; Protocol PRN Reason: Nausea And Vomiting Last Admin: 02/15/21 17:23 Dose: 4 mg Documented by: Pantoprazole Sodium (Pantoprazole 40 Mg Tablet) 40 mg PO QAMAC [facility] Last Admin: 02/15/21 10:12 Dose: 40 mg Documented by: Senna (Sennosides 1 Tablet) 2 tab PO HSP PRN PRN Reason: Constipation Sodium Chloride (0.9 % Sodium Chloride 10 Ml Syringe) 10 ml IV Q8 [facility] Last Admin: 02/16/21 05:51 Dose: 10 ml Documented by: A/P Narrative A/P Narrative: A: *Pneumonia due to COVID-19 w/possible Bacterial coinfection: -Positive SARS-CoV-2 test on 02/08 -PCT mildly elevated *Acute respiratory failure w/hypoxia: 2/2 above -BMP elevated at 1796, but clinically no evidence of volume overload, suspect 2/2 acute long process -no PE per CTA chest @[facility]. Normal cardiac SPECT 2018 with good EF -on Bipap, fio2 down to 65% *Type 2 diabetes: On Metformin at home -A1c 7.9 *Hypertension/HLD: *Hypothyroidism: Plan: -Tocilizumab today BiPAP support, wean as able proning daily High flow nasal cannula trial for meals/break from BiPAP if stable Continue dexamethasone/remdesivir Monitor intake/output, try to maintain a mild net diuresis, hold lasix for now Biotene for dry mouth Diabetic diet, sliding scale insulin, hold metformin Follow electrolytes and renal function Follow CRP Prophylaxis: Twice daily 40 mg enoxaparin given severity of Covid illness / ppi CODE STATUS: Full code, would wish to be have intubation and ventilation if needed Time Spent With Patient Time: Total time spent is greater than 50% in coordination of care (as documented) at patient's floor/unit and/or counseling patient: QUALITY VTE Deep Vein Thrombosis/Pulmonary Embolism Present on Admission: No
[2021-02-16] MEDS: PANTOPRAZOLE 40 MG TABLET PO SCH (08:17)
[2021-02-16 08:22] LABS: INR 1.3 (0.9-1.1); Prothrombin Time 16.9 sec (11.9-14.5)
[2021-02-16] MEDS: AZITHROMYCIN 500 MG in DEXTROSE 5% IN WATER 250 ML IV SCH (09:00)
[2021-02-16] MEDS: ENOXAPARIN 40 MG/0.4 ML SYRINGE SQ SCH ×2 (09:00→20:05)
[2021-02-16] MEDS: cefTRIAXone 2 GM in DEXTROSE 5% IN WATER 50 ML IV SCH (09:00)
[2021-02-16] MEDS: FUROSEMIDE 20 MG/2 ML VIAL IV SCH (09:01)
[2021-02-16] MEDS: INSULIN GLARGINE, HUMAN 1 UNIT/0.01 ML SQ SCH (09:01)
[2021-02-16] MEDS: DEXAMETHASONE 10 MG/ML VIAL IV SCH (09:01)
[2021-02-16 10:22] LABS: Band Neutrophils % 4 % (0-10); Lymphocytes % 8 % (15-49); Monocytes % (Manual) 8 % (1-12); Platelet Estimate NORMAL (Normal); RBC Morphology NORMAL (Normal); Segmented Neutrophils % 80 % (38-78)
[2021-02-16] MEDS: DOCUSATE SODIUM 50 MG/5 ML ORAL.SOL PT SCH ×2 (10:56→20:05)
[2021-02-16] MEDS: REMDESIVIR 100 MG in 0.9 % SODIUM CHLORIDE 250 ML IV SCH (11:59)
[2021-02-16] MEDS ORDERED: INSULIN GLARGINE, HUMAN 1 UNIT/0.01 ML SQ ONE ×2 (18:54→20:23)
[2021-02-16] MEDS ORDERED: INSULIN LISPRO 1 UNIT/0.01 ML UNIT SQ ONE (20:25)
[2021-02-17] MEDS: INSULIN LISPRO 1 UNIT/0.01 ML UNIT SQ SCH ×4 (04:19→14:33)
[2021-02-17] MEDS: ACETAMINOPHEN 325 MG TABLET PO PRN (04:22)
[2021-02-17] MEDS: 0.9 % SODIUM CHLORIDE 10 ML SYRINGE IV SCH (06:00)
[2021-02-17 06:49] LABS: INR 1.3 (0.9-1.1)
[2021-02-17 06:55] LABS: ALT/SGPT 18 U/L (<40); AST/SGOT 27 U/L (<32); Albumin 2.6 gm/dL (3.2-5.2); Albumin/Globulin Ratio 0.9 (1.0-2.3); Alkaline Phosphatase 45 U/L (39-117); Bilirubin,Direct 0.2 mg/dL (<0.3); Bilirubin,Total 0.5 mg/dL (0.1-1.0); Blood Urea Nitrogen 37 mg/dL (8-23); Calcium 8.5 mg/dL (8.6-10.4); Carbon Dioxide 30 mmol/L (22-30); Chloride 98 mmol/L (96-108); Globulin 2.9 gm/dL (2.2-3.7); Glomerular Filtration Rate 52; Glucose 204 mg/dL (70-105); Lactate Dehydrogenase 680 U/L (135-225); Phosphorous 2.3 mg/dL (2.5-4.5); Triglycerides 80 mg/dL (<150); Uric Acid 6.1 mg/dL (2.5-8.0)
[2021-02-17] MEDS ORDERED: POTASSIUM CHLORIDE 40 MEQ in DEXTROSE 5% IN WATER 500 ML IV PRN (07:20)
[2021-02-17] MEDS ORDERED: PANTOPRAZOLE 40 MG VIAL IV SCH (07:30)
[2021-02-17] MEDS ORDERED: IOPAMIDOL 100 ML BOTTLE IV ONE (08:14)
--- NOTE | 2021-02-17 08:25 | Internal Med Progress Note ---
SUBJECTIVE Subjective Patient information: Note initiated : 02/17/21 at 8:23 am Service Date, if different from initiated Date: [] Patient: Etelvina Max a 65 y/o F admitted on 02/14/21 for COVID, pna. Chief Complaint: [] Interval history: Ms. Max is a 65 year old F history of hypothyroidism, type 2 diabetes, hypertension, hyperlipidemia who presents in transfer from the [facility] emergency room with respiratory failure and pneumonia due to COVID- 19. History is obtained and briefly speaking with the patient, though that was focused as she was on BiPAP and had difficulty speaking and was dyspneic. Further history is also obtained in reviewing records available at the [facility], as well as records sent from [facility] that were obtained from her PCPs office. Patient tells me that she has been short of breath for 3 to 4 weeks. She is felt achy she has felt rundown and has had a generally nonproductive cough. She states she went to her PCPs about 3 weeks ago and was diagnosed with Covid, though in reviewing records she was seen in Dr. Velez's office on 02/08. She had findings consistent with COVID-19 at that time and subsequent rapid Covid test was positive. Her vital signs at that time showed 99% room air saturation. During that visit she complained of a mostly dry cough, wheezing, decreased energy myalgias and headache. She was prescribed prednisone and doxycycline prior to the SARS-CoV-2 assay returning. Since then, particularly in the last 3 days she has had worsening dyspnea. She continues to feel feverish. She has decreased appetite and decreased energy. She still has body aches. Sense of taste and smell are abnormal but are still present. She presented to the emergency department at [facility] due to worsening symptoms and required oxygen to maintain saturations. Evaluation there with CT of the chest showed no pulmonary embolism but areas of groundglass opacity consistent with COVID-19 pneumonia. White count was normal at 6.1, mild hyponatremia to 132 creatinine normal at 0.9. VBG with pH 7.49, venous CO2 40. Lactate normal at 1.7, troponin less than 0.01 and pro calcitonin slightly abnormal at 0.35. proBNP was 1796. She was initially on oxygen by nasal cannu la with progressive needs up to about 10 LPM. She was subsequently transitioned to BiPAP for increased work of breathing during transport. She is being transferred to [facility] due to lack of bed availability at [facility]. atient requiring BiPAP most of the day yesterday. Overnight at about 5:00 this morning was complaining of feeling very short of breath, was awake and alert. Up to 100% FiO2 at that time. 0.5 mg of morphine did not help with air hunger. Also received 40 mg of IV Lasix with diuresis. This morning, BiPAP pressures increased, with increasing saturations, but still on maximal FiO2. She is awake, alert and aware of her condition. Still would wish to have intuba tion if required. Willing to try proning. 02/16 FiO2 needs decreased today. She was on 100% FiO2 yesterday. She is on 65% on BiPAP. She was on 70% FiO2 on the Vapotherm but she did not tolerate it because of the heated oxygen. Trying to get Actemra today. She states poor sleep. 02/17 Patient with no improvement in respiratory needed. Still on BiPAP with FiO2 90. Patient states breathing is about the same but she feels more tired. Developed significant subcutaneous emphysema pneumo mediastinum. Discussed with patient the need for intubation and transfer to higher care facility. Review of Systems: denies headache/fever/chills/nausea/vomiting/chest or abdominal pain/diarrhea. Otherwise see above. Constitutional Vitals: Vital Signs Temp Pulse Resp BP Pulse Ox 98.6 F 84 31 H 152/65 93 02/17/21 04:22 02/17/21 05:00 02/17/21 05:00 02/17/21 04:01 02/17/21 05:00 Period Temp Pulse Resp BP Sys/Hemphill Pulse Ox Last 24 Hr 98.4 F-99.7 F 68-100 16-31 84-153/61-85 83-97 Intake and Output 02/16/21 02/17/21 02/17/21 21:59 05:59 13:59 Intake Total 200 420 Output Total 1125 250 Balance -925 170 Weight 65.998 kg Intake & Output: Intake & Output 02/16/21 02/17/21 02/17/21 21:59 05:59 13:59 Intake Total 200 420 Output Total 1125 250 Balance -925 170 Weight 65.998 kg Intake: Nourishment/Supplement quantity 200 (ml) Oral 420 Output: Urine Catheter Amount 1125 250 Other: Nourishment/Supplement name ag Urine Appearance Clear Clear Urine Color Bright Yellow Light Disha Urine Odor Normal Exam: General: Alert, Awake, No acute Distress Eyes/N/T: EOMI, Head/Neck: neck supple, subcutaneous emphysema crepitus CV: RRR, No murmurs, Pulm: Fine b/l rales, diminished b/l, no wheezing Abd: soft, nontender, +BS x4 Ext: no clubbing/cyanosis/edema Neuro: Alert, no focal deficits, moves all extremities, Skin: warm/dry OBJ DATA Labs CBC & Chem 7: 02/16/21 05:49 02/17/21 05:37 Labs: Abnormal Lab Results 02/17/21 02/17/21 02/17/21 05:37 05:17 05:17 Hgb MPV Neut % (Auto) Lymph % (Auto) Lymph # (Auto) Seg Neutrophils % Lymphocytes % PT INR D-Dimer Potassium 3.0 L Chloride BUN 37 H Glucose 204 H Hemoglobin A1c Calcium 8.5 L Phosphorus 2.3 L Ferritin 1396.0 H Direct Bilirubin AST Lactate Dehydrogenase 680 H C-Reactive Protein 4.70 H Total Protein 5.5 L Albumin 2.6 L Albumin/Globulin Ratio 0.9 L Procalcitonin 0.29 H 02/17/21 02/16/21 02/16/21 05:17 05:49 05:49 Hgb 16.3 H MPV Neut % (Auto) Lymph % (Auto) Lymph # (Auto) Seg Neutrophils % 80 H Lymphocytes % 8 L PT 17.0 H INR 1.3 H D-Dimer 1.52 H Potassium Chloride BUN 36 H Glucose 252 H Hemoglobin A1c Calcium Phosphorus Ferritin 1995.0 H Direct Bilirubin 0.3 H AST 37 H Lactate Dehydrogenase 804 H C-Reactive Protein Total Protein Albumin 2.9 L Albumin/Globulin Ratio 0.9 L Procalcitonin 02/16/21 02/16/21 02/16/21 05:48 05:48 05:47 Hgb MPV Neut % (Auto) Lymph % (Auto) Lymph # (Auto) Seg Neutrophils % Lymphocytes % PT 16.9 H INR 1.3 H D-Dimer 2.03 H Potassium Chloride BUN Glucose Hemoglobin A1c Calcium Phosphorus Ferritin Direct Bilirubin AST Lactate Dehydrogenase C-Reactive Protein 8.50 H Total Protein Albumin Albumin/Globulin Ratio Procalcitonin 0.29 H 02/15/21 02/15/21 02/15/21 05:15 05:15 05:15 Hgb 15.4 H MPV 10.7 H Neut % (Auto) 85.8 H Lymph % (Auto) 10.2 L Lymph # (Auto) 0.65 L Seg Neutrophils % Lymphocytes % PT INR D-Dimer Potassium Chloride BUN 25 H Glucose 264 H Hemoglobin A1c 7.9 H Calcium Phosphorus Ferritin Direct Bilirubin AST 43 H Lactate Dehydrogenase 863 H C-Reactive Protein 9.20 H Total Protein 5.7 L Albumin 2.7 L Albumin/Globulin Ratio 0.9 L Procalcitonin 0.26 H 02/14/21 16:29 Hgb MPV Neut % (Auto) Lymph % (Auto) Lymph # (Auto) Seg Neutrophils % Lymphocytes % PT INR D-Dimer Potassium Chloride 95 L BUN 26 H Glucose 312 H Hemoglobin A1c Calcium 8.5 L Phosphorus 2.4 L Ferritin Direct Bilirubin 0.3 H AST 42 H Lactate Dehydrogenase 825 H C-Reactive Protein Total Protein Albumin 2.8 L Albumin/Globulin Ratio 0.9 L Procalcitonin Meds: Medications Acetaminophen (Acetaminophen 325 Mg Tablet) 650 mg PO Q6HP PRN; Protocol PRN Reason: Per Pain Protocol/Fever > 101 Last Admin: 02/17/21 04:22 Dose: 650 mg Documented by: Dexamethasone (Dexamethasone 10 Mg/Ml Vial) 6 mg IV DAILY [facility] Last Admin: 02/16/21 09:01 Dose: 6 mg Documented by: Dextrose (Dextrose 50% 50 Ml Vial) 0 ml IV UD PRN PRN Reason: Hypoglycemia Diagnostic Test (Pha) (Accu-Chek 1 Each Strip) 1 each FS Q4H [facility] Docusate Sodium (Docusate Sodium 50 Mg/5 Ml Oral.Jeannie) 100 mg PT BID [facility] Last Admin: 02/16/21 20:05 Dose: 100 mg Documented by: Enoxaparin Sodium (Enoxaparin 40 Mg/0.4 Ml Syringe) 40 mg SQ BID [facility] Last Admin: 02/16/21 20:05 Dose: 40 mg Documented by: Glucose (Dextrose 31 Gm Oral.Susp) 15 gm PO PRN PRN PRN Reason: Hypoglycemia Glucose Oxid/Lactoperoxid/Muramidas (Lactoperoxi/Gluc Oxid/Pot Thio 1 Each Gel..Ea.) 1 each TOPICAL PRN PRN PRN Reason: Dry Mouth REMDESIVIR 100 mg/ Sodium (Chloride) 250 mls @ 500 mls/hr IV Q24H [facility] Stop: 02/18/21 12:29 Last Infusion: 02/16/21 12:39 Dose: Infused Documented by: Ceftriaxone Sodium 2 gm/ (Dextrose) 50 mls @ 100 mls/hr IV DAILY [facility]; Protocol Last Infusion: 02/16/21 09:40 Dose: Infused Documented by: Azithromycin 500 mg/ Dextrose 250 mls @ 250 mls/hr IV DAILY [facility]; Protocol Stop: 02/17/21 09:59 Last Infusion: 02/16/21 10:18 Dose: Infused Documented by: Potassium Chloride 40 meq/ (Dextrose) 520 mls @ 130 mls/hr IV PRN PRN PRN Reason: K+ <3.5 if unable to take PO Insulin Glargine (Insulin Glargine, Human 1 Unit/0.01 Ml) 18 unit SQ DAILY SHU Insulin Human Lispro (Insulin Lispro 1 Unit/0.01 Ml Unit) 0 unit SQ Q4H SHU; Protocol Last Admin: 02/17/21 04:19 Dose: Not Given Documented by: Lactulose (Lactulose 20 Gm/30 Ml Oral.Jeannie) 10 gm PO DAILYP PRN PRN Reason: Constipation Ondansetron HCl (Ondansetron 4 Mg Odt Tablet) 4 mg SL Q4HP PRN; Protocol PRN Reason: Nausea And Vomiting Ondansetron HCl (Ondansetron 4 Mg/2 Ml Vial) 4 mg IV Q4HP PRN; Protocol PRN Reason: Nausea And Vomiting Last Admin: 02/15/21 17:23 Dose: 4 mg Documented by: Pantoprazole Sodium (Pantoprazole 40 Mg Vial) 40 mg IV QAMAC [facility] Senna (Sennosides 1 Tablet) 2 tab PO HSP PRN PRN Reason: Constipation Sodium Chloride (0.9 % Sodium Chloride 10 Ml Syringe) 10 ml IV Q8 SHU Last Admin: 02/17/21 06:00 Dose: 10 ml Documented by: A/P Narrative A/P Narrative: A: *Pneumonia with ARDS due to COVID-19: continues to worsen -Positive SARS-CoV-2 test on 02/08 -PCT mildly elevated *Acute respiratory failure w/hypoxia: 2/2 above -BMP elevated at 1796, but clinically no evidence of volume overload, suspect 2/2 acute long process -no PE per CTA chest @[facility]. Normal cardiac SPECT 2018 with good EF -on Bipap, fio2 down to 90%, no improvement *Sub emphysema & pneumomediastinum: 2/2 bipap *Type 2 diabetes: On Metformin at home -A1c 7.9 *Hypertension/HLD: *Hypothyroidism: *Hypokalemia: Plan: d/c BiPAP and will intubate proning daily Continue dexamethasone/remdesivir -had been trying to get Tocilizumab for the last several days -empiric Abx given mildly elevated pct Monitor intake/output, try to maintain a mild net diuresis, hold lasix for now Biotene for dry mouth Diabetic diet, sliding scale insulin, hold metformin Follow electrolytes and renal function Follow CRP Prophylaxis: Twice daily 40 mg enoxaparin given severity of Covid illness / ppi CODE STATUS: Full code, would wish to be have intubation and ventilation if needed Time Spent With Patient Time: Total time spent is greater than 50% in coordination of care (as documented) at patient's floor/unit and/or counseling patient: QUALITY VTE Deep Vein Thrombosis/Pulmonary Embolism Present on Admission: No
--- NOTE | 2021-02-17 08:26 | Cat Scan Report ---
INDICATION: Expressive Aphasia COMPARISON: None. TECHNIQUE: Axial noncontrast-enhanced images through the brain. Sagittally and coronally reformatted images. FINDINGS: Cerebral hemispheres:Negative. No intra-axial abnormality. No intra-axial hematoma. No localized mass effect. Brain volume is within normal limits. No hydrocephalus Brainstem and cerebellum:No intra-axial abnormality Extra-axial:No acute hemorrhage. No subdural or epidural hematoma. No subarachnoid hemorrhage. Basilar cisterns are normal Calvarial:No calvarial fracture. No lytic lesion Temporal bones are negative. No destructive lesions Soft tissue, orbits, sinuses:There is extracranial soft tissue gas at the skull base and upper neck. Chest CT scan is pending IMPRESSION: 1. Soft tissue gas in the upper neck 2. No intracranial abnormality The exam was performed using radiation dose optimization techniques including, but not limited to, automated exposure control, adjustment of the mA and/or kV according to patient size and use of iterative reconstruction technique. Interpreted and Authenticated by: Ralph Arboleda 02/17/21
--- NOTE | 2021-02-17 08:38 | Cat Scan Report ---
INDICATION: Crepitus anterior chest COMPARISON: Chest x-ray dated 02/15/2021 TECHNIQUE: Axial contrast enhanced images through the chest. Sagittally and coronally reformatted images. MIP reformatted images. 75ml Isovue 370 injected intravenously. FINDINGS: Lungs:Extensive infiltrate throughout both lungs. There is extensive groundglass infiltrate consistent with severe covid pneumonia. There is no focal mass. Mediastinum, vascular:Extensive pneumomediastinum with gas through out of the soft tissues of the mediastinum. This extends to the supraclavicular and cervical soft tissues bilaterally. No significant pneumothorax. There is no pneumopericardium or pneumoperitoneum. Thoracic aorta is negative. Main pulmonary artery, right pulmonary, left pulmonary artery are negative. Heart:No cardiomegaly. No pericardial effusion. No significant coronary artery calcification Pleura:No significant pleural effusion. No pleural-based mass or calcification. No significant pneumothorax. Axilla, supraclavicular regions, chest wall:No pathologic axillary or supraclavicular adenopathy. Extensive soft tissue gas within the upper chest and cervical soft tissues Musculoskeletal:No thoracic compression fracture or lytic lesion. No sternal or rib lesion Upper Abdomen:Findings consistent with hepatic steatosis. There are left upper pole renal cysts. There is a 9 mm low-density abnormality in the right lower liver. This is identified on the most caudal image. This is too small to further characterize IMPRESSION: 1. Extensive groundglass type infiltrates bilaterally with bilateral lower lobe predominance. Appearance is consistent with severe covid pneumonia 2. Severe pneumomediastinum and extensive soft tissue gas in the chest and neck The exam was performed using radiation dose optimization techniques including, but not limited to, automated exposure control, adjustment of the mA and/or kV according to patient size and use of iterative reconstruction technique. Interpreted and Authenticated by: Ralph Arboleda 02/17/21
[2021-02-17] MEDS ORDERED: ONDANSETRON 4 MG/2 ML VIAL IV ONE (08:39)
[2021-02-17] MEDS ORDERED: fentaNYL 100 MCG/2 ML VIAL IV ONE ×3 (08:40→12:10)
[2021-02-17] MEDS ORDERED: INSULIN GLARGINE, HUMAN 1 UNIT/0.01 ML SQ SCH (09:00)
[2021-02-17] MEDS: DOCUSATE SODIUM 50 MG/5 ML ORAL.SOL PT SCH (09:09)
[2021-02-17] MEDS: AZITHROMYCIN 500 MG in DEXTROSE 5% IN WATER 250 ML IV SCH (09:24)
[2021-02-17] MEDS: cefTRIAXone 2 GM in DEXTROSE 5% IN WATER 50 ML IV SCH (09:24)
[2021-02-17] MEDS: DEXAMETHASONE 10 MG/ML VIAL IV SCH (09:24)
[2021-02-17] MEDS: ENOXAPARIN 40 MG/0.4 ML SYRINGE SQ SCH (09:25)
--- NOTE | 2021-02-17 10:50 | Procedure Note ---
PROC Intubation Time out performed: Yes Date of Procedure: 02/17/21 Sedative: Versed Paralytic: Rocuronium ETT: ETCO2 Laryngoscope: 3 Assist device used: glide ET tube size: 7 ET tube uncuffed: Yes Tube placement confirmation: visualized tube passing through cords
[2021-02-17] MEDS ORDERED: LACTATED RINGERS 500 ML IV ONE (11:02)
--- NOTE | 2021-02-17 11:15 | XRay Report ---
INDICATION: intubation TECHNIQUE: AP portable supine chest x-ray COMPARISON: Previous examination dated 02/15/2021 FINDINGS:Interval placement of an endotracheal tube with its tip at the thoracic inlet. Lungs:Diffuse pulmonary parenchymal infiltrates have increased since previous examination. Appearance is consistent with covid pneumonia. Heart, vascular:No significant cardiomegaly. Pulmonary vascularity is normal. No pulmonary edema or pulmonary congestion Mediastinum, peggy:There is pneumomediastinum. There is extensive soft tissue gas supraclavicular and lower neck regions. Pleura:No pleural fluid. No pleural-based mass or calcification Skeletal:Negative. IMPRESSION: 1. Status post intubation. Endotracheal tube tip at the thoracic inlet 2. Increased diffuse parenchymal infiltrates consistent with covid pneumonia 3. Pneumomediastinum and subcutaneous soft tissues gas Interpreted and Authenticated by: Ralph Arboleda 02/17/21
[2021-02-17] MEDS ORDERED: PROPOFOL 1,000 MG in PREMIX 1 BAG IV SCH (11:30)
--- NOTE | 2021-02-17 12:36 | Procedure Note ---
PROC Central Line Placement Right IJ: Consent obtained: verbal consent Date of Procedure: 02/17/21 Time out performed: Yes Patient placed on monitor/pulse ox: Yes prep: sterile gown and sterile gloves Ultrasound used for placement: Yes Central line lumen inserted: quad and 16 cm Post procedure: sutured in place Patient tolerated procedure: well Additional comments: cxr ordered stat for placement
--- NOTE | 2021-02-17 12:38 | Transfer Summary ---
Discharge Provider Provider Patient information: Note initiated : 02/17/21 at 12:37 pm Service Date, if different from initiated Date: [] Patient: Etelvina Max 65 y/o F admitted on 02/14/21 for COVID, pna. Chief Complaint: [] Date of admission: 02/14/21 14:15 Discharge date: 02/17/21 Primary care physician: Obie Velez Discharge Meds Discharge Medications Home Medications aspirin 81 mg PO QDAY 02/14/21 [History Confirmed 02/14/21 Last Taken Unknown] benzonatate 100 mg PO TIDP PRN 02/14/21 [History Confirmed 02/14/21 Last Taken 02/13/21] cannabidiol [Epidiolex] 1 mg PO DAILY 02/14/21 [History Confirmed 02/14/21 Last Taken Unknown] cholecalciferol (vitamin D3) [Vitamin D3] 1,000 unit PO DAILY 02/14/21 [History Confirmed 02/14/21 Last Taken Unknown] doxycycline hyclate 100 mg PO BID 02/14/21 [History Confirmed 02/14/21 Last Taken 02/13/21] levothyroxine 125 mcg PO QDAY 02/14/21 [History Confirmed 02/14/21 Last Taken Unknown] metformin 850 mg PO BID 02/14/21 [History Confirmed 02/14/21 Last Taken 02/13/21] omega-3 fatty oznha-yyu-bai [MegaRed Rhwpf-Bwyri-8] 1 cap PO DAILY 02/14/21 [History Confirmed 02/14/21 Last Taken Unknown] phytosterol combination no.1 [Cholest Care] 500 mg PO DAILY 02/14/21 [History Confirmed 02/14/21 Last Taken Unknown] prednisone 10 mg PO QDAY 02/14/21 [History Confirmed 02/14/21 Last Taken 02/13/21] valsartan-hydrochlorothiazide 1 tab PO QDAY 02/14/21 [History Confirmed 02/14/21 Last Taken Unknown] zinc sulfate [Orazinc] 50 mg PO QDAY 02/14/21 [History Confirmed 02/14/21 Last Taken Unknown] COURSE Hospital Course Hospital course: Interval history: Ms. Max is a 65 year old F history of hypothyroidism, type 2 diabetes, hypertension, hyperlipidemia who presents in transfer from the [facility] emergency room with respiratory failure and pneumonia due to COVID-19. History is obtained and briefly speaking with the patient, though that was focused as she was on BiPAP and had difficulty speaking and was dyspneic. Further history is also obtained in reviewing records available at the [facility], as well as records sent from Health system that were obtained from her PCPs office. Patient tells me that she has been short of breath for 3 to 4 weeks. She is felt achy she has felt rundown and has had a generally nonproductive cough. She states she went to her PCPs about 3 weeks ago and was diagnosed with Covidzelalem gh in reviewing records she was seen in Dr. Velez's office on 02/08. She had findings consistent with COVID-19 at that time and subsequent rapid Covid test was positive. Her vital signs at that time showed 99% room air saturation. During that visit she complained of a mostly dry cough, wheezing, decreased energy myalgias and headache. She was prescribed prednisone and doxycycline prior to the SARS-CoV-2 assay returning. Since then, particularly in the last 3 days she has had worsening dyspnea. She continues to feel feverish. She has decreased appetite and decreased energy. She still has body aches. Sense of taste and smell are abnormal but are still present. She presented to the emergency department at Health system due to worsening symptoms and required oxygen to maintain saturations. Evaluation there with CT of the chest showed no pulmonary embolism but areas of groundglass opacity consistent with COVID-19 pneumonia. White count was normal at 6.1, mild hyponatremia to 132 creatinine normal at 0.9. VBG with pH 7.49, venous CO2 40. Lactate normal at 1.7, troponin less than 0.01 and pro calcitonin slightly abnormal at 0.35. proBNP was 1796. She was initially on oxygen by nasal cannula with progressive needs up to about 10 LPM. She was subsequently transitioned to BiPAP for increased work of breathing during transport. She is being transferred to [facility] due to lack of bed availability at Health system. 8/3patient requiring BiPAP most of the day yesterday. Overnight at about 5:00 this morning was complaining of feeling very short of breath, was awake and alert. Up to 100% FiO2 at that time. 0.5 mg of morphine did not help with air hunger. Also received 40 mg of IV Lasix with diuresis. This morning, BiPAP pressures increased, with increasing saturations, but still on maximal FiO2. She is awake, alert and aware of her condition. Still would wish to have intubation if required. Willing to try proning. 02/16 FiO2 needs decreased today. She was on 100% FiO2 yesterday. She is on 65% on BiPAP. She was on 70% FiO2 on the Vapotherm but she did not tolerate it because of the heated oxygen. Trying to get Actemra today. She states poor sleep. 02/17 Patient with no improvement in respiratory needed. Still on BiPAP with FiO2 90. Patient states breathing is about the same but she feels more tired. Developed significant subcutaneous emphysema pneumo mediastinum. Discussed with patient the need for intubation and transfer to higher care facility. Discussed with [facility] who graciously excepted patient. A: *Pneumonia with ARDS due to COVID-19: continues to worsen -Positive SARS-CoV-2 test on 02/08 -PCT mildly elevated *Acute respiratory failure w/hypoxia: 2/2 above -BMP elevated at 1796, but clinically no evidence of volume overload, suspect 2/2 acute long process -no PE per CTA chest @[facility]. Normal cardiac SPECT 2018 with good EF -on Bipap, fio2 down at 90%, no improvement *Sub emphysema & pneumomediastinum: 2/2 bipap *Type 2 diabetes: On Metformin at home -A1c 7.9 *Hypertension/HLD: *Hypothyroidism: *Hypokalemia: Discharge diagnosis: Covid pneumonia with large acute respiratory hypoxic failure Secondary discharge diagnosis: Subcutaneous emphysema pneumomediastinum diabetes hypertension hypokalemia hypothyroidism Time Spent with Patient Time attestation: Total time spent providing and/or coordinating discharge services: EXAM Constitutional Vitals: Temp Pulse Resp BP Pulse Ox 99.0 F 83 24 H 152/79 93 02/17/21 07:00 02/17/21 08:23 02/17/21 10:50 02/17/21 09:01 02/17/21 10:50 Discharge Data Data Completed and Pending Labs on day of discharge: Labs from last 24 hours 02/17/21 02/17/21 02/17/21 05:37 05:17 05:17 PT INR D-Dimer Sodium 140 Potassium 3.0 L Chloride 98 Carbon Dioxide 30 Anion Gap 12.0 BUN 37 H Creatinine 1.1 GFR Calculation 52 Glucose 204 H Uric Acid 6.1 Calcium 8.5 L Phosphorus 2.3 L Magnesium 2.1 Ferritin 1396.0 H Total Bilirubin 0.5 Direct Bilirubin 0.2 GGT 17 AST 27 ALT 18 Alkaline Phosphatase 45 Lactate Dehydrogenase 680 H C-Reactive Protein 4.70 H Total Protein 5.5 L Albumin 2.6 L Globulin 2.9 Albumin/Globulin Ratio 0.9 L Triglycerides 80 Procalcitonin 0.29 H 02/17/21 05:17 PT 17.0 H INR 1.3 H D-Dimer 1.52 H Sodium Potassium Chloride Carbon Dioxide Anion Gap BUN Creatinine GFR Calculation Glucose Uric Acid Calcium Phosphorus Magnesium Ferritin Total Bilirubin Direct Bilirubin GGT AST ALT Alkaline Phosphatase Lactate Dehydrogenase C-Reactive Protein Total Protein Albumin Globulin Albumin/Globulin Ratio Triglycerides Procalcitonin Discharge Plan Patient/Caregiver Discharge Instructions Prescriptions: No Action prednisone 10 mg Tablet 10 mg PO QDAY RF: 0 doxycycline hyclate 100 mg Capsule 100 mg PO BID RF: 0 metformin 850 mg Tablet 850 mg PO BID RF: 0 benzonatate 100 mg Capsule 100 mg PO TIDP PRN (Reason: Cough) RF: 0 valsartan-hydrochlorothiazide 160-12.5 mg Tablet 1 tab PO QDAY RF: 0 levothyroxine 125 mcg Tablet 125 mcg PO QDAY RF: 0 aspirin 81 mg Tablet 81 mg PO QDAY RF: 0 cholecalciferol (vitamin D3) [Vitamin D3] 25 mcg (1,000 unit) Capsule 1,000 unit PO DAILY RF: 0 zinc sulfate [Orazinc] 50 mg zinc (220 mg) Capsule 50 mg PO QDAY RF: 0 Cholest Care 500 mg Capsule 500 mg PO DAILY RF: 0 MegaRed Zzotx-[id number]-6 300 mg Capsule 1 cap PO DAILY RF: 0 Epidiolex 100 mg/mL Solution 1 mg PO DAILY RF: 0 Follow Up Plan Patient Disposition: Count Includes [facility] Prognosis: Serious Discharge Orders: Discharge Order (Routine); Ordered 02/17/21 Ordered By: Anibal Chappell [facility] VTE Deep Vein Thrombosis/Pulmonary Embolism Present on Admission: No
--- NOTE | 2021-02-17 13:03 | XRay Report ---
INDICATION: central line position TECHNIQUE: AP portable chest x-ray COMPARISON: Previous examination dated 02/17/2021 FINDINGS:Interval placement of right central venous catheter with its tip in the superior vena cava. No detectable pneumothorax. Endotracheal tube tip remains at the thoracic inlet, unchanged Lungs:Diffuse infiltrates are consistent with severe covid pneumonia. Appearance is unchanged Heart, vascular:No significant cardiomegaly. Pulmonary vascularity is normal. No pulmonary edema or pulmonary congestion Mediastinum, peggy:There is prominent pneumomediastinum. There is extensive soft tissue gas in the upper chest and base of the neck Pleura:No pleural fluid. No pleural-based mass or calcification Skeletal:Negative. IMPRESSION: Status post right central venous catheter placement. Catheter tip is in the superior vena cava Interpreted and Authenticated by: Ralph Arboleda 02/17/21
[2021-02-17] MEDS: REMDESIVIR 100 MG in 0.9 % SODIUM CHLORIDE 250 ML IV SCH (13:08)
[2021-02-17] MEDS ORDERED: MIDAZOLAM 5 MG/5 ML VIAL IV ONE (14:03)
[2021-02-17] MEDS ORDERED: ROCURONIUM 10 MG/ML ML IV ONE (14:03)
== END 2021-02-17 14:20 | disposition short-term general hospital (02) | DRG 208 ==
LOC: ICU 14:15
PROVIDERS: ADMIT Internal Medicine; ATTEND Internal Medicine